=== PATIENT | male | born 1975 | race Two or more races ===

== ENCOUNTER 2018-08-17 19:42 | Emergency (ER) | payer OTHER ==
[~2018-08-17] VITALS: Ht 172.7 cm; Wt 75.0 kg
[2018-08-17 20:04] LABS: MICROSCOPIC NOT IND
[2018-08-17 20:05] LABS: BASOPHILS # (AUTO) 0.04 x10^3/uL (0-0.1); BASOPHILS % (AUTO) 1 % (0-1); EOSINOPHILS # (AUTO) 0.44 x10^3/uL (0-0.4); EOSINOPHILS % (AUTO) 7 % (1-7); LYMPHOCYTES % (AUTO) 36 % (22-44); MD NO; MEAN CORPUSCULAR HEMOGLOBIN 30.2 pg (27.5-34.5); MEAN CORPUSCULAR HGB CONC 33.7 g/dL (33.2-36.2); MEAN CORPUSCULAR VOLUME 89.6 fL (81-97); MEAN PLATELET VOLUME 7.2 fL (7.4-10.4); MONOCYTES # (AUTO) 0.52 x10^3/uL (0.2-0.8); MONOCYTES % (AUTO) 8 % (2-9); NEUTROPHILS # (AUTO) 3.29 x10^3/uL (1.8-6.8); NEUTROPHILS % (AUTO) 49 % (42-75); PLATELET COUNT 313 x10^3/uL (130-400); RED BLOOD COUNT 4.68 x10^6/uL (4.38-5.82); RED CELL DISTRIBUTION WIDTH 11.8 % (9.4-14.8)
[2018-08-17 20:07] LABS: CULTURE INDICATED? NO
[2018-08-17 20:15] LABS: AMPHETAMINE SCREEN, URINE Negative (Negative); BARBITURATE SCREEN, URINE Negative (Negative); BENZODIAZEPINE SCREEN, URINE Negative (Negative); CANNABINOID SCREEN, URINE Negative (Negative); COCAINE SCREEN, URINE Negative (Negative); METHADONE SCREEN, URINE Negative (Negative); OPIATE SCREEN, URINE Negative (Negative)
[2018-08-17 20:24] LABS: ALANINE AMINOTRANSFERASE 39 U/L (12-78); ANION GAP 7 mmol/L (5-15); CALCIUM 8.1 mg/dL (8.5-10.1); CHLORIDE 112 mmol/L (98-107); CREATININE 0.83 mg/dL (0.7-1.3)
[2018-08-17 20:27] LABS: ALKALINE PHOSPHATASE 88 U/L (45-117); BILIRUBIN,TOTAL 0.3 mg/dL (0.2-1.0); TOTAL PROTEIN 7.4 g/dL (6.4-8.2)
--- NOTE | 2018-08-17 21:34 | NUR ---
PT SLEEPING. RR 14 AND UNLABORED. VSS.
--- NOTE | 2018-08-17 23:30 | NUR ---
0.138 AT THIS TIME. POC DISCUSSED. PT DENIES FURTHER NEEDS AT THIS TIME.
--- NOTE | 2018-08-18 01:42 | NUR ---
PT NOW 0.079. PT DENIES SUICIDAL IDEATIONS. INFORMED. PT TO BE DC. PT GIVEN BELONGINGS. PT DRESSING AT THIS TIME.
[2018-08-18 01:43] VITALS: BP 141/88
== END 2018-08-18 02:27 | disposition home or self-care (01) ==
LOC: ED 08-18 01:46
DX: F41.1 Generalized anxiety disorder (principal); F10.129 Alcohol abuse with intoxication, unspecified; Y90.9 Presence of alcohol in blood, level not specified
CPT/HCPCS: 36415; 80053; 80307; 81003; 85025; 99284